=== PATIENT | female | born 1955 | race Caucasian/White ===

== ENCOUNTER → 2017-12-08 | Outpatient (CLI) | payer OTHER ==
--- NOTE | 2017-12-09 11:51 | MM ---
Reason for exam: screening (asymptomatic). History: Patient is postmenopausal. Physical Findings: A clinical breast exam by your physician is recommended on an annual basis and results should be correlated with mammographic findings. MG Screening Mammo w CAD Bilateral CC and MLO view(s) were taken. No prior studies available for comparison. The breast tissue is heterogeneously dense. This may lower the sensitivity of mammography. Benign appearing bilateral calcifications. No suspicious abnormality. Intramammary lymph nodes noted. ASSESSMENT: Benign, BI-RAD 2 RECOMMENDATION: Routine screening mammogram of both breasts in 1 year.
== END | disposition home or self-care (01) ==
LOC: RADMAMWWP 13:08
PROVIDERS: ATTEND Family Medicine
DX: Z12.31 Encounter for screening mammogram for malignant neoplasm of breast (principal)
CPT/HCPCS: 77067

== ENCOUNTER → 2018-03-17 | Day surgery (SDC) | payer MEDICARE, OTHER ==
[2018-03-15 11:45] VITALS: BMI 26.6
[~2018-03-17] MED LIST: LACTATED RINGERS 1,000 ML IV SCH; LIDOCAINE 1% 20 ML VIAL (10MG/ML) FOR IV START INTRADERMA ONE; PROPOFOL 10 MG/ML 20 ML VIAL IV ONE; diphenhydrAMINE 50 MG/ML 1 ML VIAL ONE
[2018-03-17 12:11] VITALS: RESP 16; TEMP 97
--- NOTE | 2018-03-17 13:35 | P.GSHP ---
History of Present Illness H&P Date: 03/17/18 Chief Complaint: Colon cancer screening Patient here today for colonoscopy. Last colonoscopy 10 years ago. No bowel related complaints. No family history of colon cancer although she does not know her family history well. Past Medical History Past Medical History: GERD/Reflux, Hyperlipidemia, Hypertension, Thyroid Disorder History of Any Multi-Drug Resistant Organisms: None Reported Past Surgical History: Cholecystectomy, Hernia Repair, Tonsillectomy Additional Past Surgical History / Comment(s): CYST REMOVED FROM ABD. AREA. CYST REMOVED FROM RT ANKLE. HERNIA X 3. COLONOSCOPY. EGD Past Anesthesia/Blood Transfusion Reactions: No Reported Reaction Smoking Status: Former smoker - Past Family History Mother Family Medical History: No Reported History Additional Family Medical History / Comment(s): MOTHER COMMITTED SUICIDE. FATHER HHX UNKNOWN Medications and Allergies Home Medications Medication Instructions Recorded Confirmed Type Enalapril [Vasotec] 20 mg PO BID 03/15/18 03/17/18 History Levothyroxine Sodium 125 mcg PO MOTUWETHFR 03/15/18 03/17/18 History Lovastatin [Mevacor] 40 mg PO HS 03/15/18 03/17/18 History Metoclopramide [Reglan] 10 mg PO TID-W/MEALS 03/15/18 03/17/18 History Omeprazole 20 mg PO DAILY 03/15/18 03/17/18 History Venlafaxine HCl [Effexor] 75 mg PO TID 03/15/18 03/17/18 History amLODIPine BESYLATE [Norvasc] 2.5 mg PO DAILY 03/15/18 03/17/18 History Allergies Allergy/AdvReac Type Severity Reaction Status Date / Time adhesive tape Allergy Rash/Hives Verified 03/17/18 12:00 Surgical - Exam Vital Signs Temp Pulse Resp BP Pulse Ox 97.0 F L 84 16 156/75 98 03/17/18 12:09 03/17/18 12:09 03/17/18 12:09 03/17/18 12:09 03/17/18 12:09 Physical exam: General: Well-developed, well-nourished HEENT: Normocephalic, sclerae nonicteric Abdomen: Nontender, nondistended Extremities: No edema Neuro: Alert and oriented Assessment and Plan (1) Colon cancer screening Narrative/Plan: Will proceed with colonoscopy at this time Current Visit: Yes Status: Acute Code(s): Z12.11 - ENCOUNTER FOR SCREENING FOR MALIGNANT NEOPLASM OF COLON SNOMED Code(s): 875550818
--- NOTE | 2018-03-17 13:54 | P.PCN ---
Date of Procedure: 03/17/18 Procedure(s) Performed: PREOPERATIVE DIAGNOSIS: Colon cancer screening POSTOPERATIVE DIAGNOSIS: Ascending colon polyp, 2 rectal polyps, diverticulosis PROCEDURE: Colonoscopy with snare polypectomy ANESTHESIA: MAC SURGEON: Davey Armendariz M.D. SPECIMENS: Polyps ENDOSCOPIC PROCEDURE: The patient was placed on the endoscopy table in the left decubitus position. The Olympus colonoscope was inserted into the anus and passed under direct visualization to the base of the cecum. The appendiceal orifice was visualized. From that point the scope was slowly withdrawn inspecting all surfaces carefully. There were no neoplastic inflammatory or polypoid lesions throughout the cecum. In the ascending colon a small polyp was identified and removed using the snare with cautery technique. The remaining of the ascending transverse descending and sigmoid colon appeared normal. In the rectum there were 2 small polyps removed in a similar fashion. There was mild left-sided diverticulosis present. Digital rectal examination was normal. The patient was taken to the recovery room in stable condition per anesthesia guidelines. RECOMMENDATIONS: Await biopsy results. Anticipate follow-up colonoscopy 5 years.
[2018-03-17 13:58] VITALS: BP 143/64; PULSE 79
== END ==
LOC: ORWHC2ENDO 11:23
PROVIDERS: ATTEND Surgery
DX: Z12.11 Encounter for screening for malignant neoplasm of colon (principal); D12.2 Benign neoplasm of ascending colon; D12.8 Benign neoplasm of rectum; K62.1 Rectal polyp; K57.30 Diverticulosis of large intestine without perforation or abscess without bleeding; K21.9 Gastro-esophageal reflux disease without esophagitis; E78.5 Hyperlipidemia, unspecified; I10 Essential (primary) hypertension; E07.9 Disorder of thyroid, unspecified; Z79.890 Hormone replacement therapy; Z79.899 Other long term (current) drug therapy; Z91.048 Other nonmedicinal substance allergy status; Z90.49 Acquired absence of other specified parts of digestive tract; Z87.891 Personal history of nicotine dependence
CPT/HCPCS: 88305; 45385; J1200; J2704

== ENCOUNTER → 2018-08-07 | Outpatient (CLI) | payer MEDICARE, OTHER ==
--- NOTE | 2018-08-07 11:28 | XR ---
EXAMINATION TYPE: XR pelvis AP view DATE OF EXAM: 08/07/2018 CLINICAL HISTORY: Pelvic and groin pain. TECHNIQUE: A single AP view of the pelvis is obtained. COMPARISON: None. FINDINGS: There is no acute fracture/dislocation evident in the pelvis. The hip and sacroiliac join ts appear symmetric and unremarkable. Vague linear densities over the pelvis extending right of midli ne of uncertain etiology. Pubic symphysis shows sclerosis and deformity perhaps product of old trauma . IMPRESSION: As above.
--- NOTE | 2018-08-07 11:30 | XR ---
EXAMINATION TYPE: XR lumbar spine 2 or 3V DATE OF EXAM: 08/07/2018 CLINICAL HISTORY: Low back pain. TECHNIQUE: Frontal and lateral images of the lumbar spine are obtained. COMPARISON: None FINDINGS: There are 5 lumbar type vertebral bodies identified. The lumbar spine shows levoconvex sc oliosis centered L3 level without evidence of acute fracture or dislocation. Vertebral body heights a re felt within normal limits. Moderate to severe narrowing with spurring is most prominent left L1-L2 level. There is mild to moderate disc space narrowing L2-L3 level and L4-L5 levels. There is moderat e disc space narrowing with mild to moderate anterior spurring L5-S1 level. The overlying soft tissue appears unremarkable. IMPRESSION: As above.
--- NOTE | 2018-08-07 11:35 | XR ---
EXAMINATION TYPE: XR cervical spine limited DATE OF EXAM: 08/07/2018 TECHNIQUE: Frontal, lateral, and open mouth view of the cervical spine are obtained. HISTORY: M99.03 M54.41 M99.01 limited movement and pain. COMPARISON: None FINDINGS: The cervical spine is visualized in its entirety from C1 thru the top of T1 level, it is s traightened in alignment without evidence of acute fracture or dislocation. The pre-vertebral soft t issue appears within normal limits. The C1-C2 articulation is within normal limits on the open mouth view. Vertebral body heights are maintained. There is moderate 2 borderline advanced multilevel spur ring and disc space narrowing from C3 to C4 through C7-T1 levels. Frontal view shows levoconvex scoli otic curvature centered upper thoracic T3 level. Overlying soft tissue is unremarkable. IMPRESSION: As above.
== END | disposition home or self-care (01) ==
LOC: RADXRMAIN 10:34
PROVIDERS: ATTEND Chiropractor
DX: M41.86 Other forms of scoliosis, lumbar region (principal); M48.061 Spinal stenosis, lumbar region without neurogenic claudication; M48.03 Spinal stenosis, cervicothoracic region; M54.41 Lumbago with sciatica, right side; M99.01 Segmental and somatic dysfunction of cervical region
CPT/HCPCS: 72040; 72100; 72170

== ENCOUNTER → 2018-11-17 | Outpatient (CLI) | payer MEDICARE, OTHER ==
--- NOTE | 2018-11-17 13:39 | XR ---
EXAMINATION TYPE: XR chest 2V DATE OF EXAM: 11/17/2018 COMPARISON: NONE HISTORY: Cough for one month TECHNIQUE: Frontal and lateral views of the chest are obtained. FINDINGS: Increased interstitial prominence is present throughout. There is no focal air space opacit y, pleural effusion, or pneumothorax seen. The cardiac silhouette size is within normal limits. Th e osseous structures are intact. Minimal S-shaped scoliosis is seen of the thoracolumbar junction. Ch olecystectomy clips are noted. IMPRESSION: Diffuse increased interstitial prominence that can be seen in reactive airway disease, i nterstitial pneumonitis, or infectious airway disease such as bronchitis.
== END | disposition home or self-care (01) ==
LOC: RADXRMAIN 12:33
PROVIDERS: ATTEND Family Medicine
DX: R91.8 Other nonspecific abnormal finding of lung field (principal); R05 Cough
CPT/HCPCS: 71046

== ENCOUNTER → 2019-04-17 | Outpatient (CLI) | payer MEDICARE, OTHER ==
--- NOTE | 2019-04-17 15:44 | US ---
EXAMINATION TYPE: US kidneys/renal and bladder DATE OF EXAM: 04/17/2019 COMPARISON: NONE CLINICAL HISTORY: N18.3 Chronic kidney disease. CKD stage 3 EXAM MEASUREMENTS: Right Kidney: 9.7 x 5.7 x 4.8 cm Left Kidney: 9.5 x 5.0 x 4.7 cm Right Kidney: no hydronephrosis or masses seen Left Kidney: no hydronephrosis or masses seen Bladder: wnl Bilateral Jets seen: yes There is no evidence for hydronephrosis at this point in time. No nephrolithiasis is seen. No loco s are identified. The urinary bladder is anechoic. Bilateral ureteral jets are seen. IMPRESSION: No hydronephrosis or nephrolithiasis. No current sonographic sequela of medical renal dis ease.
== END | disposition home or self-care (01) ==
LOC: RADUSWWP 14:52
PROVIDERS: ATTEND Family Medicine
DX: N18.3 Chronic kidney disease, stage 3 (moderate) (principal)
CPT/HCPCS: 76770

== ENCOUNTER 2019-10-20 16:52 | Emergency (ER) | payer MEDICARE, OTHER ==
[2019-10-20 17:01] VITALS: RESP 18; TEMP 98.4
[2019-10-20] MEDS ORDERED: ONDANSETRON 4 MG/2 ML VIAL IVP STA (17:18)
[2019-10-20] MEDS ORDERED: SODIUM CHLORIDE 0.9% 1,000 ML IV STA (17:18)
[2019-10-20] MEDS ORDERED: KETOROLAC 30 MG/ML 1 ML VIAL IVP STA (17:18)
--- NOTE | 2019-10-20 17:27 | ED ---
General Adult HPI - General Chief complaint: Abdominal Pain Stated complaint: Abd pain Time Seen by Provider: 10/20/19 17:05 Source: patient, RN notes reviewed Mode of arrival: ambulatory Limitations: no limitations - History of Present Illness Initial comments: 64-year-old female with a past medical history of hyperlipidemia, hypertension, GERD presents to the emergency department for a chief complaint of abdominal pain. Patient states that 5 days ago she noticed her abdomen was distended and she had associated nausea. Patient states that she was also having some lower abdominal pain starting at that time. Patient states the next day she tried to eat and vomited. States that she saw her doctor through telemedicine on and they recommended soft foods and to follow-up next week. Patient states that this morning she had a solid bowel movement and thought things were improving. However she ate 2 crackers and then had diarrhea. States the abdominal pain is worse. States it is in her lower abdomen, both sides. Patient states she has had chills on and off but has not checked a temperature so no recorded fevers at home. Patient did have a cholecystectomy several years ago.Patient has no other complaints at this time including shortness of breath, chest pain, headache, or visual changes. - Related Data Home Medications Medication Instructions Recorded Confirmed Enalapril [Vasotec] 20 mg PO BID 03/15/18 03/17/18 Levothyroxine Sodium 125 mcg PO MOTUWETHFR 03/15/18 03/17/18 Lovastatin [Mevacor] 40 mg PO HS 03/15/18 03/17/18 Metoclopramide [Reglan] 10 mg PO TID-W/MEALS 03/15/18 03/17/18 Omeprazole 20 mg PO DAILY 03/15/18 03/17/18 Venlafaxine HCl [Effexor] 75 mg PO TID 03/15/18 03/17/18 amLODIPine BESYLATE [Norvasc] 2.5 mg PO DAILY 03/15/18 03/17/18 Allergies Allergy/AdvReac Type Severity Reaction Status Date / Time adhesive tape Allergy Rash/Hives Verified 10/20/19 16:55 Review of Systems ROS Statement: Those systems with pertinent positive or pertinent negative responses have been documented in the HPI. ROS Other: All systems not noted in ROS Statement are negative. Past Medical History Past Medical History: GERD/Reflux, Hyperlipidemia, Hypertension, Thyroid Disorder History of Any Multi-Drug Resistant Organisms: None Reported Past Surgical History: Cholecystectomy, Hernia Repair, Tonsillectomy Additional Past Surgical History / Comment(s): CYST REMOVED FROM ABD. AREA. CYST REMOVED FROM RT ANKLE. HERNIA X 3. COLONOSCOPY. EGD Past Anesthesia/Blood Transfusion Reactions: No Reported Reaction Past Psychological History: Anxiety, PTSD Smoking Status: Former smoker Past Alcohol Use History: None Reported Past Drug Use History: Marijuana - Past Family History Mother Family Medical History: No Reported History Additional Family Medical History / Comment(s): MOTHER COMMITTED SUICIDE. FATHER HHX UNKNOWN General Exam Limitations: no limitations General appearance: alert, in no apparent distress Head exam: Present: atraumatic, normocephalic, normal inspection Eye exam: Present: normal appearance, PERRL, EOMI. Absent: scleral icterus, conjunctival injection, periorbital swelling ENT exam: Present: normal exam, mucous membranes moist Neck exam: Present: normal inspection, full ROM. Absent: tenderness, meningismus, lymphadenopathy Respiratory exam: Present: normal lung sounds bilaterally. Absent: respiratory distress, wheezes, rales, rhonchi, stridor Cardiovascular Exam: Present: regular rate, normal rhythm, normal heart sounds. Absent: systolic murmur, diastolic murmur, rubs, gallop, clicks GI/Abdominal exam: Present: soft, distended, tenderness (Tenderness generalized in the lower abdomen. There is no upper abdominal tenderness.), normal bowel sounds. Absent: guarding, rebound, rigid Neurological exam: Present: alert Course Vital Signs 10/20/19 16:55 Temperature 98.4 F Pulse Rate 100 Respiratory 18 Rate Blood Pressure 160/96 O2 Sat by Pulse 98 Oximetry Medical Decision Making - Medical Decision Making Vitals are stable. Patient has generalized tenderness to the lower abdomen. Patient is well-appearing, ambulatory around the exam room. She is nontoxic. CBC is unremarkable. CMP shows some possible dehydration she was given fluids. Otherwise unremarkable. CT abdomen and pelvis shows a soft tissue density in the ascending colon measuring 5.4 cm which could represent form stool or mass colonoscopy recommended. Patient did have a colonoscopy within the last year that was normal aside from 1 polyp. Pulmonary nodule, uterine leiomyoma and ovoid structure in the right adnexa also addressed with patient and she will follow-up with her primary care for this on Tuesday. We will try magnesium citrate for possible stool ball. Although patient had a colonoscopy in the past year I discussed that she should follow up with GI for this given concern for mass. Patient is in agreement. She will also discuss this with her primary care provider in go through CT results with them. Patient is feeling better after Toradol. Patient very much wants to go home as she has 4 dogs to manage but does agree to return to the ER if things worsen. I did discuss symptoms that would require her to return in detail with patient.I discussed this case with attending Dr. Crandall who agrees with this assessment and treatment plan. - Lab Data Result diagrams: 10/20/19 17:35 10/20/19 17:35 Lab Results 10/20/19 10/20/19 10/20/19 Range/Units 17:35 17:35 17:35 WBC 9.5 (3.8-10.6) k/uL RBC 5.08 (3.80-5.40) m/uL Hgb 15.7 (11.4-16.0) gm/dL Hct 48.4 H (34.0-46.0) % MCV 95.2 (80.0-100.0) fL MCH 30.9 (25.0-35.0) pg MCHC 32.4 (31.0-37.0) g/dL RDW 12.5 (11.5-15.5) % Plt Count 225 (150-450) k/uL Neutrophils % 70 % Lymphocytes % 19 % Monocytes % 7 % Eosinophils % 2 % Basophils % 1 % Neutrophils # 6.6 (1.3-7.7) k/uL Lymphocytes # 1.8 (1.0-4.8) k/uL Monocytes # 0.6 (0-1.0) k/uL Eosinophils # 0.2 (0-0.7) k/uL Basophils # 0.1 (0-0.2) k/uL Sodium 139 (137-145) mmol/L Potassium 3.5 (3.5-5.1) mmol/L Chloride 104 (98-107) mmol/L Carbon Dioxide 20 L (22-30) mmol/L Anion Gap 15 mmol/L BUN 19 H (7-17) mg/dL Creatinine 1.32 H (0.52-1.04) mg/dL Est GFR (CKD-EPI)AfAm 49 (>60 ml/min/1.73 sqM) Est GFR (CKD-EPI)NonAf 42 (>60 ml/min/1.73 sqM) Glucose 104 H (74-99) mg/dL Plasma Lactic Acid Anupam 1.4 (0.7-2.0) mmol/L Calcium 10.5 H (8.4-10.2) mg/dL Total Bilirubin 0.4 (0.2-1.3) mg/dL AST 45 H (14-36) U/L ALT 28 (4-34) U/L Alkaline Phosphatase 87 (38-126) U/L Total Protein 8.3 H (6.3-8.2) g/dL Albumin 5.2 H (3.5-5.0) g/dL Amylase 83 (30-110) U/L Lipase 146 (23-300) U/L Urine Color Urine Appearance (Clear) Urine pH (5.0-8.0) Ur Specific Metz (1.001-1.035) Urine Protein (Negative) Urine Glucose (UA) (Negative) Urine Ketones (Negative) Urine Blood (Negative) Urine Nitrite (Negative) Urine Bilirubin (Negative) Urine Urobilinogen (<2.0) mg/dL Ur Leukocyte Esterase (Negative) Urine RBC (0-5) /hpf Urine WBC (0-5) /hpf Ur Squamous Epith Cells (0-4) /hpf Urine Bacteria (None) /hpf Hyaline Casts (0-2) /lpf Urine Mucus (None) /hpf 10/20/19 Range/Units 18:35 WBC (3.8-10.6) k/uL RBC (3.80-5.40) m/uL Hgb (11.4-16.0) gm/dL Hct (34.0-46.0) % MCV (80.0-100.0) fL MCH (25.0-35.0) pg MCHC (31.0-37.0) g/dL RDW (11.5-15.5) % Plt Count (150-450) k/uL Neutrophils % % Lymphocytes % % Monocytes % % Eosinophils % % Basophils % % Neutrophils # (1.3-7.7) k/uL Lymphocytes # (1.0-4.8) k/uL Monocytes # (0-1.0) k/uL Eosinophils # (0-0.7) k/uL Basophils # (0-0.2) k/uL Sodium (137-145) mmol/L Potassium (3.5-5.1) mmol/L Chloride (98-107) mmol/L Carbon Dioxide (22-30) mmol/L Anion Gap mmol/L BUN (7-17) mg/dL Creatinine (0.52-1.04) mg/dL Est GFR (CKD-EPI)AfAm (>60 ml/min/1.73 sqM) Est GFR (CKD-EPI)NonAf (>60 ml/min/1.73 sqM) Glucose (74-99) mg/dL Plasma Lactic Acid Anupam (0.7-2.0) mmol/L Calcium (8.4-10.2) mg/dL Total Bilirubin (0.2-1.3) mg/dL AST (14-36) U/L ALT (4-34) U/L Alkaline Phosphatase (38-126) U/L Total Protein (6.3-8.2) g/dL Albumin (3.5-5.0) g/dL Amylase (30-110) U/L Lipase (23-300) U/L Urine Color Light Yellow Urine Appearance Cloudy H (Clear) Urine pH 6.5 (5.0-8.0) Ur Specific Metz 1.013 (1.001-1.035) Urine Protein Negative (Negative) Urine Glucose (UA) Negative (Negative) Urine Ketones 1+ H (Negative) Urine Blood Negative (Negative) Urine Nitrite Negative (Negative) Urine Bilirubin Negative (Negative) Urine Urobilinogen <2.0 (<2.0) mg/dL Ur Leukocyte Esterase Small H (Negative) Urine RBC 1 (0-5) /hpf Urine WBC 6 H (0-5) /hpf Ur Squamous Epith Cells 6 H (0-4) /hpf Urine Bacteria Many H (None) /hpf Hyaline Casts 12 H (0-2) /lpf Urine Mucus Rare H (None) /hpf Disposition Clinical Impression: Abdominal pain, Pulmonary nodule Disposition: HOME SELF-CARE Condition: Good Instructions (If sedation given, give patient instructions): Abdominal Pain (ED) Additional Instructions: Please drink half a bottle of magnesium citrate and wait 12 hours. If you do not produce a bowel movement drink the other half. Follow-up with your primary care doctor for findings on computed tomography scan. Follow-up with GI for concern for mass of the right side of the colon. If you're having worsening symptoms please return to the emergency department. These could include worsening pain, vomiting, fevers, or not passing gas. Is patient prescribed a controlled substance at d/c from ED?: No Referrals: Abelardo Gupta [Primary Care Provider] - 1-2 days Tamara Hawthorne MD [STAFF PHYSICIAN] - 1-2 days Time of Disposition: 19:33
[2019-10-20 17:52] LABS: Basophils # (A) 0.1 k/uL (0-0.2); Basophils % (A) 1 %; Eosinophils # (A) 0.2 k/uL (0-0.7); Eosinophils % (A) 2 %; HCT 48.4 % (34.0-46.0); HGB 15.7 gm/dL (11.4-16.0); Lymphocytes # (A) 1.8 k/uL (1.0-4.8); Lymphocytes % (A) 19 %; MCH 30.9 pg (25.0-35.0); MCHC 32.4 g/dL (31.0-37.0); MCV 95.2 fL (80.0-100.0); Mean Platelet Volume 8.3; Monocytes # (A) 0.6 k/uL (0-1.0); Monocytes % (A) 7 %; Neutrophils # (A) 6.6 k/uL (1.3-7.7); Neutrophils % (A) 70 %; Platelet Count 225 k/uL (150-450); RBC 5.08 m/uL (3.80-5.40); RDW 12.5 % (11.5-15.5); WBC 9.5 k/uL (3.8-10.6)
[2019-10-20 18:03] LABS: Albumin 5.2 g/dL (3.5-5.0); Calcium 10.5 mg/dL (8.4-10.2); Potassium 3.5 mmol/L (3.5-5.1); Total Bilirubin 0.4 mg/dL (0.2-1.3); Total Protein 8.3 g/dL (6.3-8.2)
--- NOTE | 2019-10-20 18:43 | CT ---
EXAMINATION TYPE: CT abdomen pelvis w con DATE OF EXAM: 10/20/2019 HISTORY: ABDOMINAL PAIN AND DIARRHEA CT DLP: 962.8mGycm Automated Exposure Control for Dose Reduction was Utilized. CONTRAST: CT scan of the abdomen and pelvis is performed with IV Contrast, patient injected with 80 mL of Isovu e 300. COMPARISON: None. FINDINGS: LUNG BASES: There is a 9 mm right basilar pulmonary nodule peripherally with a punctate internal calc ification. Given the internal calcifications this most commonly represents a granuloma. LIVER/GB: There are scattered hypoattenuated hepatic lesions the largest measuring 1.0 cm having aver age Hounsfield unit of fluid compatible with a cyst. The other lesions are too small to accurately ch aracterize. Hepatic parenchyma is diffusely hypoattenuated in comparison to that of the spleen, most commonly seen in hepatic steatosis. This finding limits evaluation for hepatic masses. No intrahepati c biliary ductal dilatation. Gallbladder surgically absent. PANCREAS: No significant abnormality is seen. SPLEEN: No significant abnormality is seen. ADRENALS: No significant abnormality is seen. KIDNEYS: Kidneys enhance and excrete symmetrically other than punctate to small to accurately charact erize bilateral renal lesions. No hydronephrosis of either kidney. BOWEL: Duodenal diverticulum is incidentally seen. Few sigmoid and descending colonic diverticula are present without pericolonic fat stranding. Lack of oral contrast limits evaluation of the bowel. The re is soft tissue density seen within the cecum neck could represent formed stool or mass. Colonoscop y is recommended. This measures 5.4 cm on image 38. UTERUS/ADNEXA: In the right adnexa there is a hyperdense structure, likely a surgical clip with a sma ll amount of adjacent fluid. No significant surrounding inflammatory fat stranding. Uterus is heterog enous with possible 2.4 cm uterine fundal leiomyoma. This could be further evaluated with pelvic ultr asound. LYMPH NODES: No greater than 1cm abdominal or pelvic lymph nodes are appreciated. OSSEOUS STRUCTURES: Grade 1 anterolisthesis is seen of L4 on L5. Moderate degenerative disc disease o f the spine. Mild retrolisthesis of L2 on L3 and L1 on L2, likely on a degenerative basis levoscolios is of the lumbar spine. IMPRESSION: 1. Soft tissue density in the ascending colon measuring 5.4 cm. This could represent formed stool or mass. Colonoscopy is recommended. 2. 9 mm partially calcified right lower lobe pulmonary nodule. Given the internal calcification is li neena represents a benign granuloma. Consideration could be given to PET CT for confirmation or short- term follow-up CT thorax in 3-6 months to ensure stability. 3. Possible uterine leiomyoma. This could be further evaluated with pelvic ultrasound. 4. Fluid attenuated ovoid structure in the right adnexa adjacent to a surgical clip, possibly free fl uid, physiologic basis.
[2019-10-20 19:06] LABS: Appearance,Urine Cloudy (Clear); Bacteria,Urine Many /hpf; Bilirubin,Urine Negative (Negative); Blood,Urine Negative (Negative); Color,Urine Light Yellow; Glucose,Urine (UA) Negative (Negative); Hyaline Casts,Urine 12 /lpf (0-2); Ketones,Urine 1+ (Negative); Leukocyte Esterase,Urine Small (Negative); Mucus,Urine Rare /hpf; Nitrite,Urine Negative (Negative); PH, Urine 6.5 (5.0-8.0); Protein,Urine Negative (Negative); RBC,Urine 1 /hpf (0-5); Specific Gravity,Urine 1.013 (1.001-1.035); Squamous Epithelial Cell,Urine 6 /hpf (0-4); Urobilinogen,Urine <2.0 mg/dL (<2.0); WBC,Urine 6 /hpf (0-5)
[2019-10-20] MEDS ORDERED: MAGNESIUM CITRATE 296 ML BOTTLE PO STA (19:32)
[2019-10-20 19:44] VITALS: BP 128/88; PULSE 90
== END 2019-10-20 20:05 | disposition home or self-care (01) ==
LOC: EC 16:52
DX: D25.9 Leiomyoma of uterus, unspecified (principal); R91.1 Solitary pulmonary nodule; K21.9 Gastro-esophageal reflux disease without esophagitis; E78.5 Hyperlipidemia, unspecified; I10 Essential (primary) hypertension; E07.9 Disorder of thyroid, unspecified; F41.9 Anxiety disorder, unspecified; F43.10 Post-traumatic stress disorder, unspecified; Z90.49 Acquired absence of other specified parts of digestive tract; Z98.890 Other specified postprocedural states; Z87.891 Personal history of nicotine dependence; Z79.890 Hormone replacement therapy; Z79.899 Other long term (current) drug therapy; Z91.048 Other nonmedicinal substance allergy status
CPT/HCPCS: 36415; 80053; 82150; 83605; 83690; 85025; 81001; 74177; 99284; 96374; 96375; 96361; J2405; J1885; Q9967

== ENCOUNTER → 2019-12-24 | Outpatient (CLI) | payer MEDICARE, OTHER ==
[2019-12-24 08:59] LABS: African American GFR (CKD) >90 (>60 ml/min/1.73 sqM); Anion Gap 7 mmol/L; Blood Urea Nitrogen 20 mg/dL (7-17); Calcium 9.7 mg/dL (8.4-10.2); Carbon Dioxide 25 mmol/L (22-30); Chloride 107 mmol/L (98-107); Glucose 97 mg/dL (74-99); Non-African American GFR(CKD) 83 (>60 ml/min/1.73 sqM); Potassium 4.7 mmol/L (3.5-5.1); Sodium 139 mmol/L (137-145)
--- NOTE | 2019-12-24 09:37 | CT ---
EXAMINATION TYPE: CT chest w con DATE OF EXAM: 12/24/2019 COMPARISON: 10/20/2019 HISTORY: follow up lung nodule CT DLP: 305.7 mGycm Automated exposure control for dose reduction was used. CONTRAST: CT scan of the chest is performed with IV Contrast, patient injected with 100 mL of Isovue 300. FINDINGS: LUNGS: There is a stable 9 mm subpleural nodule within the right lower lobe. No pneumothorax or pleur al effusion. No focal pneumonia. No evidence of vascular congestion. No additional pulmonary nodules. MEDIASTINUM: There are no greater than 1 cm hilar or mediastinal lymph nodes. No pericardial effusi on is seen. OTHER: Multiple hypodensities within the liver are stable from the prior exam most likely in the bas is of simple cyst. Hypertrophic and degenerative changes of the vertebral column. Postcholecystectomy changes. IMPRESSION: 1. Stable 9 mm nodule with punctate calcification therefore likely benign. However given its size it would recommend 3- 6 month follow-up CT scan to confirm stability or PET scan could be obtained.
== END | disposition home or self-care (01) ==
LOC: RADCTMAIN 08:16
PROVIDERS: ATTEND Family Medicine
DX: R91.1 Solitary pulmonary nodule (principal); I12.9 Hypertensive chronic kidney disease with stage 1 through stage 4 chronic kidney disease, or unspecified chronic kidney disease; N18.3 Chronic kidney disease, stage 3 (moderate)
CPT/HCPCS: 80048; 71260; 36415; Q9967

== ENCOUNTER → 2020-03-07 | Outpatient (CLI) | payer MEDICARE, OTHER ==
--- NOTE | 2020-03-11 13:53 | MM ---
Reason for exam: screening (asymptomatic). Last mammogram was performed 2 years and 3 months ago. History: Patient is postmenopausal and has history of other cancer at age 65. Physical Findings: A clinical breast exam by your physician is recommended on an annual basis and results should be correlated with mammographic findings. MG 3D Screening Mammo W/Cad Bilateral CC and MLO view(s) were taken. Prior study comparison: December 08, 2017, bilateral MG screening mammo w CAD. The breast tissue is heterogeneously dense. This may lower the sensitivity of mammography. Stable benign calcifications. There is chronic nodularity bilaterally. No significant changes when compared with prior studies. ASSESSMENT: Benign, BI-RAD 2 RECOMMENDATION: Routine screening mammogram of both breasts in 1 year.
== END | disposition home or self-care (01) ==
LOC: RADMAMWWP 07:56
PROVIDERS: ATTEND Family Medicine
DX: Z12.31 Encounter for screening mammogram for malignant neoplasm of breast (principal)
CPT/HCPCS: 77063; 77067

== ENCOUNTER → 2020-08-14 | Outpatient (CLI) | payer MEDICARE, OTHER ==
--- NOTE | 2020-08-15 08:09 | BD ---
EXAMINATION TYPE: Axial Bone Density DATE OF EXAM: 08/14/2020 COMPARISON: NONE CLINICAL HISTORY: Height: 5 FT 4 1/2 IN Weight: 171 FRAX RISK QUESTIONS: Alcohol (3 or more units per day): NO Family History (Parent hip fracture): NO Glucocorticoids (More than 3mos): NO (Ex: prednisone, prednisolone, methylprednisolone, dexamethasone, and hydrocortisone). History of Fracture in Adulthood: YES Secondary Osteoporosis: 1. Type 1 Diabetes: NO 2. Hyperthyroidism: REMOVED 3. Menopause before 45:NO 4. Malnutrition: NO 5. Chronic liver disease: NO Rheumatoid Arthritis: NO Current Tobacco Use: NO RISK FACTORS HISTORY OF: History of Wrist Fracture: RT WRIST FX When: LONG AGO Surgery to Spine/Hip(right/left)/Wrist (right/left): NO Family History of Osteoporosis: NO Active: NO Diet low in dairy products/other sources of calcium: NO Postmenopausal woman: AGE 52 Take estrogen and/or progesterone medications: TOOK HRT FOR 1-2 YEARS AROUND 10 YEARS AGO Lost more than 2 inches in height since high school: YES MEDICATIONS: Thyroid Medications: YES Which medication: LEVOTHYROXINE How Long: SINCE AGE 19 Additional Medications: LEVOTHYROXINE, LOVASTATIN, VENLAFAXINE, AMLODIPINE, ENALAPRIL Additional History: EXAM MEASUREMENTS: Bone mineral densitometry was performed using the [employer] System. Bone mineral density as measured about the Lumbar spine is: ----- L1-L4(G/cm2): 1.367 T Score Values are as follows: ----- L2: 1.8 ----- L3: 1.9 ----- L4: 0.7 ----- L1-L4: 1.6 BASELINE Bone mineral density about the R hip (g/cm2): 0.888 Bone mineral density about the L hip (g/cm2): 0.838 T Score values are as follows: -----R Neck: -1.1 -----L Neck: -1.4 -----R Total: -1.1 -----L Total: -1.2 BASELINE IMPRESSION: Osteopenia (T Score between -2.5 and -1). There is slightly increased risk of fracture and the patient may be considered for treatment. Re-Screen 2-5 years. NOTE: T-SCORE=SD OF THE YOUNG ADULT MEAN.
== END ==
LOC: RADBDWWP 09:04
PROVIDERS: ATTEND Family Medicine
DX: M85.89 Other specified disorders of bone density and structure, multiple sites (principal)
CPT/HCPCS: 77080

== ENCOUNTER → 2020-12-09 | Outpatient (CLI) | payer MEDICARE, OTHER ==
--- NOTE | 2020-12-09 15:28 | CT ---
EXAMINATION TYPE: CT chest wo con DATE OF EXAM: 12/09/2020 COMPARISON: CT chest 12/24/2019 HISTORY: Follow up lung nodule R91.[address] DLP: 540 mGycm. Automated Exposure Control for Dose Reduction was Utilized. TECHNIQUE: CT scan of the thorax is performed without IV contrast. FINDINGS: Lack of contrast could compromise sensitivity LUNGS: The lungs are grossly clear, there is no concerning parenchymal mass or nodule identified. Th e centrally calcified smoothly marginated nodule in the right lower lobe is stable. There is no pleur al effusion or pneumothorax seen. The tracheobronchial tree is patent. MEDIASTINUM: Lack of IV contrast is noted to limit evaluation for mediastinal and especially hilar ad enopathy. There are no definitive greater than 1 cm hilar or mediastinal lymph nodes. No cardiomega ly or pericardial effusion is seen. Calcified nodule is stable adjacent to the esophagus and posterio r to the left atrium OTHER: No additional significant abnormality is seen, bones are stable. Hypodensities within the naomi er are unchanged. Patient is post cholecystectomy. IMPRESSION: Benign lung nodule. Stable exam.
== END | disposition home or self-care (01) ==
LOC: RADCTMAIN 13:21
PROVIDERS: ATTEND Family Medicine
DX: R91.1 Solitary pulmonary nodule (principal)
CPT/HCPCS: 71250

== ENCOUNTER → 2021-05-19 | Outpatient (CLI) | payer MEDICARE, OTHER ==
--- NOTE | 2021-05-20 14:03 | MM ---
Reason for exam: screening (asymptomatic). Last mammogram was performed 1 year and 2 months ago. History: Patient is postmenopausal and has history of other cancer at age 65. Physical Findings: A clinical breast exam by your physician is recommended on an annual basis and results should be correlated with mammographic findings. MG 3D Screening Mammo W/Cad Bilateral CC and MLO view(s) were taken. Prior study comparison: March 07, 2020, bilateral MG 3d screening mammo w/cad. December 08, 2017, bilateral MG screening mammo w CAD. The breast tissue is heterogeneously dense. This may lower the sensitivity of mammography. Benign appearing bilateral calcifications. There is chronic nodularity in the right breast, stable. No significant changes when compared with prior studies. ASSESSMENT: Benign, BI-RAD 2 RECOMMENDATION: Routine screening mammogram of both breasts in 1 year.
== END | disposition home or self-care (01) ==
LOC: RADMAMWWP 07:59
PROVIDERS: ATTEND Family Medicine
DX: Z12.31 Encounter for screening mammogram for malignant neoplasm of breast (principal); Z78.0 Asymptomatic menopausal state
CPT/HCPCS: 77063; 77067

== ENCOUNTER → 2022-04-15 | Outpatient (CLI) | payer MEDICARE, OTHER ==
--- NOTE | 2022-04-15 11:32 | P.SLEEP ---
History of Present Illness DATE: 04/15/2022 CONSULTATION/NEW PATIENT EVALUATION HISTORY OF PRESENT ILLNESS/SLEEP-WAKE EVALUATION: 67-year-old lady had been evaluated in the sleep center for possible obstructive sleep apnea hypopnea syndrome. SLEEP SCHEDULE: Usually sleep schedule from 10 PM to 7 AM 7 days a week. FALLING ASLEEP: Patient had problems with the falling asleep which was corrected with the trazodone 50 mg at bedtime. Patient has TV set and bedroom. DURING SLEEP: Patient snores, usually sleeps on the side position, wakes up 3 times with nocturia, dry mouth, episodes of panic attack, sweating. Positive history of sleep talking. No history of hypnogogical hallucinations, sleep paralysis, or cataplexy. DURING THE DAY/WAKE STATE: In the morning patient wake up tired, has difficulties to pay attention, has problems with memory, concentration, irritability and anxiety. [place] sleepiness scale is 5. Patient may take 1 nap during the day. PAST MEDICAL HISTORY: Hypertension, ADHD, hypothyroidism secondary to radioactive iodine treatment at age of 18, hyperlipidemia. PAST SURGICAL HISTORY: Tonsillectomy, cholecystectomy, ovarian cyst removed, 30 tumor removed. MEDICATIONS: Levothyroxine 125 g 5 times per week, lovastatin 40 mg once a week, clonidine/triamterene, trazodone 50 mg at bedtime, atomoxetine 100 mg once a day, midodrin 5 mg 3 times a day. SOCIAL HISTORY: Positive history of smoking for 20 pack years, quit about 40 years ago, alcohol consumption occasional. FAMILY HISTORY: Bipolar disorder. REVIEW OF SYSTEMS: Snoring, multiple awakenings from sleep, tiredness and sleepiness during the day. No fevers. No double vision. No recent chest pain. No shortness of breath. No abdominal pain. No bleeding episodes. No blood in urine. No seizure episodes. PHYSICAL EXAMINATION: GENERAL: A pleasant patient without any distress. VITAL SIGNS: BP 152/94 , HR 62 , RR 16 , weight 158.2 pounds, height 5 foot 5-1/4 inches, body mass index 26.1 . HEENT: PERRLA, EOMI. Evaluation of oropharynx showed tongue protrudes midline, low position of soft palate Mallampati 34, retrognathia 23 millimeters. NECK: Supple. No JVD. Thyroid is not palpable. 14-3/4 inches in circumference. LUNGS: Clear to percussion and to auscultation. Good air exchange. No wheezing or rhonchi. HEART: S1, S2 regular. No murmurs, gallops or rubs. ABDOMEN: Soft and nontender. Bowel sounds are present. No organomegaly appreciated. EXTREMITIES: No clubbing or cyanosis. FLAME GOUGER: Awake, alert, and oriented x3. Cranial nerves 2 to 7 intact. There is no fasciculation or atrophy noted. No focal deficits observed. ASSESSMENT: 1. Snoring, multiple awakenings from sleep, small oropharyngeal air space, retrognathia. Obstructive sleep apnea hypopnea syndrome. 2. Hypertension. 3. Hypothyroidism secondary to radioactive iodine treatment about 50 years ago. 4. History of ADHD. 5 hyperlipidemia. 6 . Status post tonsillectomy. 7. Status post cholecystectomy. 8. Status post ovarian cyst removed. 9 . Status post fatty tumor removed. . PLAN: 1. Polysomnography for evaluation of patient's breathing during sleep. 2. CPAP/BiPAP titration if sleep study confirms obstructive sleep apnea- hypopnea syndrome. 3. Preferable position during sleep on the side. 4. No driving if patient feels any sleepiness. Patient is aware of civil and criminal liability for unsafe driving. 5. Sleep hygiene with regular sleep time for at least 7.5-8 hours. 6. Watching weight. Thank you very much for referring this patient for consultation. Sincerely, Edward Gunn MD, PhD, FAASM. Diplomat of [place] [employer], Sleep Medicine Board by [place] [employer] [place] [employer] [place] [facility] of [facility] [place] Past Medical History Past Medical History: GERD/Reflux, Hyperlipidemia, Hypertension, Thyroid Disorder History of Any Multi-Drug Resistant Organisms: None Reported Past Surgical History: Cholecystectomy, Hernia Repair, Tonsillectomy Additional Past Surgical History / Comment(s): CYST REMOVED FROM ABD. AREA. CYST REMOVED FROM RT ANKLE. HERNIA X 3. COLONOSCOPY. EGD Past Anesthesia/Blood Transfusion Reactions: No Reported Reaction Past Psychological History: Anxiety, PTSD Past Alcohol Use History: None Reported Past Drug Use History: Marijuana - Past Family History Mother Family Medical History: No Reported History Additional Family Medical History / Comment(s): MOTHER COMMITTED SUICIDE. FATHER HHX UNKNOWN Medications and Allergies Home Medications Medication Instructions Recorded Confirmed Type Enalapril [Vasotec] 20 mg PO BID 10/17/18 10/19/18 History Levothyroxine Sodium 125 mcg PO MOTUWETHFR 03/15/18 03/17/18 History Lovastatin [Mevacor] 40 mg PO HS 03/15/18 03/17/18 History Metoclopramide [Reglan] 10 mg PO TID-W/MEALS 03/15/18 03/17/18 History Omeprazole 20 mg PO DAILY 03/15/18 03/17/18 History Venlafaxine HCl [Effexor] 75 mg PO TID 03/15/18 03/17/18 History amLODIPine BESYLATE [Norvasc] 2.5 mg PO DAILY 03/15/18 03/17/18 History Allergies Allergy/AdvReac Type Severity Reaction Status Date / Time adhesive tape Allergy Rash/Hives Verified 10/20/19 16:55 Sleep Note - Sleep Note Sleep Note: Temperature: Pulse Rate: Respiratory Rate: Blood Pressure: SpO2: Height: Weight: BMI: Neck Circumference:
== END ==
LOC: SLEEP 10:43
PROVIDERS: ATTEND Internal Medicine
DX: G47.33 Obstructive sleep apnea (adult) (pediatric) (principal); I10 Essential (primary) hypertension; E78.5 Hyperlipidemia, unspecified; E89.0 Postprocedural hypothyroidism; Z86.59 Personal history of other mental and behavioral disorders; Z98.890 Other specified postprocedural states; Z91.048 Other nonmedicinal substance allergy status; Z87.891 Personal history of nicotine dependence
CPT/HCPCS: 99211

== ENCOUNTER → 2022-05-20 | Outpatient (CLI) | payer MEDICARE, OTHER ==
--- NOTE | 2022-05-21 09:17 | MM ---
Reason for Exam: Screening (asymptomatic). Last screening mammogram was performed 12 month(s) ago. Patient History: Menarche at age 11. First Full-Term at age 24. Postmenopausal. Other cancer, age 65. Risk Values: Edita 5 year model risk: 1.9%. NCI Lifetime model risk: 5.9%. Prior Study Comparison: 12/08/2017 Bilateral Screening Mammogram, [facility]. 03/07/2020 Bilateral Screening Mammogram, [facility]. 05/19/2021 Bilateral Screening Mammogram, [facility]. Tissue Density: The breast tissue is heterogeneously dense. This may lower the sensitivity of mammography. Findings: Analyzed By CAD. Stable interval circumscribed 5 mm lesion in the right breast posterior upper aspect. Benign-appearing bilateral axillary lymph nodes are redemonstrated. Benign-appearing vascular calcifications bilaterally is again seen. No obvious new mass or distortion. There is no suspicious new group of microcalcification. Overall Assessment: Incomplete: need additional imaging evaluation, BI-RAD 0 Management: Diagnostic Breast Ultrasound of the right breast. Targeted ultrasound right breast at site of palpable lump marked by the technologist. Electronically signed and approved by: Andrew Love M.D.
== END | disposition home or self-care (01) ==
LOC: RADMAMWWP 10:38
PROVIDERS: ATTEND Family Medicine
DX: Z12.31 Encounter for screening mammogram for malignant neoplasm of breast (principal); Z78.0 Asymptomatic menopausal state
CPT/HCPCS: 77063; 77067

== ENCOUNTER → 2022-05-27 | Outpatient (CLI) | payer MEDICARE, OTHER ==
--- NOTE | 2022-05-27 15:26 | USB ---
Reason for Exam: Clinical finding. Patient History: Menarche at age 11. First Full-Term at age 24. Postmenopausal. Other cancer, age 65. Risk Values: Edita 5 year model risk: 1.9%. NCI Lifetime model risk: 5.9%. Technique: Method: Targeted. Prior Study Comparison: 03/07/2020 Bilateral Screening Mammogram, [facility]. 05/19/2021 Bilateral Screening Mammogram, [facility]. 05/20/2022 Bilateral MG 3D screening mammo w/cad, [facility]. Findings: The area of palpable concern of the right breast, the axilla of the right breast and the retroareolar of the right breast were scanned. There is a 2.1 x 0.7 x 1.7 cm isoechoic structure at the level of palpable abnormality marked by the BB. This is located 3:00 position 6 cm from the nipple. Small lipoma may be present. No suspicious spiculated or lobular masses evident.. Overall Assessment: Probably benign, BI-RAD 3 Management: Diagnostic Breast Ultrasound of the right breast in 6 months. A clinical breast exam by your physician is recommended on an annual basis and results should be correlated with mammographic findings. This exam should not preclude additional follow-up of suspicious palpable abnormalities. Results were given to the patient verbally at the time of exam. Electronically signed and approved by: Hollis Molina D.O. Radiologis
== END | disposition home or self-care (01) ==
LOC: RADUSWWP 14:50
PROVIDERS: ATTEND Family Medicine
DX: R92.8 Other abnormal and inconclusive findings on diagnostic imaging of breast (principal); Z78.0 Asymptomatic menopausal state

== ENCOUNTER → 2022-11-04 | Outpatient (CLI) | payer MEDICARE, OTHER ==
--- NOTE | 2022-11-04 11:39 | USB ---
Reason for Exam: Follow-up at short interval from prior study. Patient History: Menarche at age 11. First Full-Term at age 24. Postmenopausal. Other cancer, age 65. Risk Values: Edita 5 year model risk: 1.9%. NCI Lifetime model risk: 5.9%. Technique: Method: Targeted. Prior Study Comparison: 03/07/2020 Bilateral Screening Mammogram, [facility]. 05/19/2021 Bilateral Screening Mammogram, [facility]. 05/20/2022 Bilateral MG 3D screening mammo w/cad, [facility]. Findings: The upper inner quadrant of the right breast, the axilla of the right breast and the retroareolar of the right breast were scanned. Targeted ultrasound upper inner quadrant right breast 12:00 to 3:00 including the subareolar region and axilla. Redemonstrated at the palpable 2:00 position is a 2.1 x 1.7 x 0.7 cm circumscribed oval isoechoic mass. No internal vascularity. This remains unchanged from 6 months ago and a lipoma is suggested. An additional short interval follow-up can be performed at the time of the patient's annual exam. Overall Assessment: Probably benign, BI-RAD 3 Management: Diagnostic Mammogram of both breasts in 6 months. Diagnostic Breast Ultrasound of the right breast in 6 months. Reassess the 3:00 palpable right breast probable lipoma at the time of the patient's annual exam. A clinical breast exam by your physician is recommended on an annual basis and results should be correlated with mammographic findings. This exam should not preclude additional follow-up of suspicious palpable abnormalities. Results were given to the patient verbally at the time of exam. Electronically signed and approved by: Ariane Maier M.D. Radiologist
== END | disposition home or self-care (01) ==
LOC: RADUSWWP 10:43
PROVIDERS: ATTEND Family Medicine
DX: R92.8 Other abnormal and inconclusive findings on diagnostic imaging of breast (principal); Z78.0 Asymptomatic menopausal state

== ENCOUNTER → 2023-01-17 | Outpatient (CLI) | payer MEDICARE, OTHER ==
--- NOTE | 2023-01-19 23:26 | BD ---
EXAMINATION TYPE: Axial Bone Density DATE OF EXAM: 01/17/2023 CLINICAL HISTORY: 67 years old Female. ICD-10 CODE: M89.9 DISORDER OF BONE, UNSPECIFIED Height: 64.5 Weight: 163 FRAX RISK QUESTIONS: History of Fracture in Adulthood: yes Secondary Osteoporosis: no RISK FACTORS HISTORY OF: History of Wrist Fracture: yes, rt wrist When: age was in 40's Active: yes Diet low in dairy products/other sources of calcium: no Postmenopausal woman: yes, 52 Lost more than 2 inches in height since high school: yes Frequent falls: no Poor Health: no MEDICATIONS: Thyroid Medications: yes Which medication: Levothyroxine How Lon+ years Additional Medications: yes hbp meds, cholesterol, ADHD meds, muscle relaxer EXAM MEASUREMENTS: Bone mineral densitometry was performed using the [employer] System. Bone mineral density as measured about the Lumbar spine is: ----- L1-L4(G/cm2): 1.357 T Score Values are as follows: ----- L1: 2.7 ----- L2: 1.6 ----- L3: 1.7 ----- L4: 0.2 ----- L1-L4: 1.5 Z Score Values are as follows: ----- L1: 4.1 ----- L2: 2.9 ----- L3: 3.0 ----- L4: 1.5 ----- L1-L4: 2.8 Bone mineral density has: Decreased -0.7% since study of: 08/14/2020 Bone mineral density about the R hip (g/cm2): 0.869 Bone mineral density about the L hip (g/cm2): 0.870 T Score values are as follows: -----R Neck: -0.9 -----L Neck: -1.3 -----R Total: -1.1 -----L Total: -1.1 Z Score values are as follows: -----R Neck: 0.6 -----L Neck: 0.1 -----R Total: -1.1 -----L Total: -1.1 Bone mineral density has: Increased 1.2% since study of: 08/14/2020 FRAX%s: The graph provided illustrates a 15.0% chance for a major osteoporotic fx and a 1.9% chance f or the hips probability for fx in 10 years time. IMPRESSION: Osteopenia (T Score between -2.5 and -1). There is slightly increased risk of fracture and the patient may be considered for treatment. Re-Screen 2-5 years. NOTE: T-SCORE=SD OF THE YOUNG ADULT MEAN.
== END | disposition home or self-care (01) ==
LOC: RADBDWWP 07:09
PROVIDERS: ATTEND Family Medicine
DX: M85.89 Other specified disorders of bone density and structure, multiple sites (principal)
CPT/HCPCS: 77080

== ENCOUNTER 2023-04-16 06:32 | Emergency (ER) | payer MEDICARE, OTHER ==
[2023-04-16 06:53] VITALS: RESP 18
--- NOTE | 2023-04-16 07:03 | ED ---
Upper Extremity HPI - General Chief Complaint: Extremity Injury, Upper Stated Complaint: Left Pinky Finger Injury Time Seen by Provider: 04/16/23 06:38 Source: patient, RN notes reviewed Mode of arrival: ambulatory Limitations: no limitations - History of Present Illness Initial Comments: This is a 68-year-old female who presents to the emergency department for an injury to the left pinky finger. Believes that she's broken this finger 3 times in the last month. The first time was as a result of her finger getting caught between dog leashes. The previous 2 times she believes were when she accidentally jammed her finger trying to open a drawer or lift an object. Believes that she most recently injured this 3 days ago, again when trying to open a drawer. She is able to move it, but states that it is painful. States that it also appears bent. Complaint: Injury to:: left, finger - Related Data Home Medications Medication Instructions Recorded Confirmed Enalapril [Vasotec] 20 mg PO BID 03/15/18 03/17/18 Levothyroxine Sodium 125 mcg PO MOTUWETHFR 03/15/18 03/17/18 Lovastatin [Mevacor] 40 mg PO HS 03/15/18 03/17/18 Metoclopramide [Reglan] 10 mg PO TID-W/MEALS 03/15/18 03/17/18 Omeprazole 20 mg PO DAILY 03/15/18 03/17/18 Venlafaxine HCl [Effexor] 75 mg PO TID 03/15/18 03/17/18 amLODIPine BESYLATE [Norvasc] 2.5 mg PO DAILY 03/15/18 03/17/18 Allergies Allergy/AdvReac Type Severity Reaction Status Date / Time adhesive tape Allergy Rash/Hives Verified 10/20/19 16:55 Review of Systems ROS Statement: Those systems with pertinent positive or pertinent negative responses have been documented in the HPI. ROS Other: All systems not noted in ROS Statement are negative. Past Medical History Past Medical History: GERD/Reflux, Hyperlipidemia, Hypertension, Thyroid Disorder History of Any Multi-Drug Resistant Organisms: None Reported Past Surgical History: Cholecystectomy, Hernia Repair, Tonsillectomy Additional Past Surgical History / Comment(s): CYST REMOVED FROM ABD. AREA. CYST REMOVED FROM RT ANKLE. HERNIA X 3. COLONOSCOPY. EGD Past Anesthesia/Blood Transfusion Reactions: No Reported Reaction Past Psychological History: Anxiety, PTSD Smoking Status: Never smoker Past Alcohol Use History: Occasional Past Drug Use History: Marijuana - Past Family History Mother Family Medical History: No Reported History Additional Family Medical History / Comment(s): MOTHER COMMITTED SUICIDE. FATHER HHX UNKNOWN General Exam Limitations: no limitations General appearance: alert, in no apparent distress Head exam: Present: atraumatic, normocephalic, normal inspection Respiratory exam: Present: normal lung sounds bilaterally. Absent: respiratory distress, wheezes, rales, rhonchi, stridor Cardiovascular Exam: Present: regular rate, normal rhythm, normal heart sounds. Absent: systolic murmur, diastolic murmur, rubs, gallop, clicks Extremities exam: Present: other (Left 5th finger has a mild flexion deformity at the DIP joint. Full ROM. No tenderness or swelling.) Neurological exam: Present: alert, oriented X3, CN II-XII intact Psychiatric exam: Present: normal affect, normal mood Course Vital Signs 04/16/23 06:33 Temperature 96.9 F L Pulse Rate 89 Respiratory 18 Rate Blood Pressure 147/85 O2 Sat by Pulse 98 Oximetry Procedures - Orthopedic Splinting/Casting Injury #1 Side: left Upper Extremity Injury Location: finger Upper Extremity Immobilizer: aluminum form splint Medical Decision Making - Medical Decision Making This is a 68 year old female who presents to the emergency department for a left pinky finger injury. Was pt. sent in by a medical professional or institution? @ -No Did you speak to anyone other than the patient for history? @ -No Did you review nursing and triage notes? @ -Yes, and I agree, it is accurate with regards to the patient's symptoms. Were old charts reviewed? @ -No Differential Diagnosis? @ -Differential Musculoskeletal: Muscular strain, contusion, ligament sprain, fracture, arthritis, septic arthritis, bursitis, cellulitis, muscle spasm, nerve compression, DVT, arterial occlusion, herpes zoster, electrolyte abnormality, tumor.... This is not meant to be in all inclusive list EKG interpreted by me (3pts min.)? @ -Not obtained X-rays interpreted by me (1pt min.)? @ -XR of the left fifth finger obtained. My interpretation identifies a flexion deformity at the DIP joint. CT interpreted by me (1pt min.)? @ -Not obtained U/S interpreted by me (1pt. min.)? @ -Not obtained What testing was considered but not performed? (CT, X-rays, U/S, labs)? Why? @ -None What meds were considered but not given? Why? @ -None Did you discuss the management of the patient with other professionals? @ -No Did you reconcile home meds? @ -No Was smoking cessation discussed for >3mins.? @ -No Was critical care preformed (if so, how long)? @ -No Were there social determinants of health that impacted care today? How? (Homelessness, low income, unemployed, alcoholism, drug addiction, transportation, low edu. Level, literacy, decrease access to med. care, fdc, rehab)? @ -No Was there de-escalation of care discussed even if they declined? (Discuss DNR or withdrawal of care, Hospice)? @ -No What co-morbidities impacted this encounter? (DM, HTN, Smoking, COPD, CAD, Cancer, CVA, Hep., AIDS, mental health diagnosis, sleep apnea, morbid obesity)? @ -None Was patient admitted / discharged? @ -Discharged. X-ray of the left fifth finger obtained. This demonstrates a possible mallet finger with a subtle avulsion injury at the extensor insertion at the dorsal distal phalangeal base. Findings reviewed with the patient. She was put in a finger splint and given information for orthopedic follow-up. Ad vised ibuprofen and Tylenol as needed for pain relief. Patient discharged home in stable condition. Undiagnosed new problem with uncertain prognosis? @ -None Drug Therapy requiring intensive monitoring for toxicity (Heparin, Nitro, Insulin, Cardizem)? @ -None Were any procedures done? @ -Finger splint application Diagnosis/symptom? @ -Mallet finger Acute, or Chronic, or Acute on Chronic? @ -Acute Uncomplicated (without systemic symptoms) or Complicated (systemic symptoms)? @ -Uncomplicated Side effects of treatment? @ -None Exacerbation, Progression, or Severe Exacerbation] @ -Not applicable Poses a threat to life or bodily function? @ -May have an impact on her use of the finger. Return precautions reviewed in depth, the patient is instructed to return to the emergency department with any new, worsening, or concerning symptoms. Patient verbalized understanding. This case was discussed in detail with the attending ED physician, Dr. Wong. Presentation, findings, and treatment plan discussed in detail as well. - Radiology Data Radiology results: report reviewed, image reviewed Disposition Clinical Impression: Mallet deformity of left little finger Disposition: HOME SELF-CARE Instructions (If sedation given, give patient instructions): Jammed Finger (ED), Finger Fracture (ED) Additional Instructions: Return to the emergency department with any new, worsening, or concerning symptoms. Alternate with ibuprofen and Tylenol as needed for pain relief. Contact orthopedics as listed below for a follow-up appointment and reevaluation. Is patient prescribed a controlled substance at d/c from ED?: No Referrals: Amy Arboleda MD [Primary Care Provider] - 1-2 days Diana Sánchez DO [Doctor of Osteopathic Medicine] - 1-2 days
--- NOTE | 2023-04-16 07:38 | XR ---
EXAMINATION TYPE: XR finger LT, 3 views coned down fifth finger DATE OF EXAM: 04/16/2023 Comparison: None Clinical History: 68-year-old female with pain after Left fifth finger injury Findings: There is subtle density at the dorsal aspect of the fifth distal phalangeal base. There may be some m ild overlying soft tissue swelling. Slight flexion deformity here. Impression: Possible mallet finger with a subtle avulsion injury at the extensor insertion at the dorsal distal p halangeal base. Clinically correlate.
[2023-04-16 08:10] VITALS: BP 138/76; PULSE 88; TEMP 97.2
== END 2023-04-16 07:56 | disposition home or self-care (01) ==
LOC: EC 06:32
DX: M20.012 Mallet finger of left finger(s) (principal); E78.5 Hyperlipidemia, unspecified; I10 Essential (primary) hypertension; K21.9 Gastro-esophageal reflux disease without esophagitis; F41.9 Anxiety disorder, unspecified; E07.9 Disorder of thyroid, unspecified; Z79.890 Hormone replacement therapy; Z79.899 Other long term (current) drug therapy; Z91.09 Other allergy status, other than to drugs and biological substances
CPT/HCPCS: 99283

== ENCOUNTER → 2023-05-09 | Outpatient (CLI) | payer MEDICARE, OTHER ==
--- NOTE | 2023-05-09 14:49 | MM ---
Reason for Exam: Follow-up at short interval from prior study. Last screening mammogram was performed 12 month(s) ago. Patient History: Menarche at age 11. First Full-Term at age 24. Postmenopausal. Risk Values: Edita 5 year model risk: 1.9%. NCI Lifetime model risk: 5.6%. Prior Study Comparison: 12/08/2017 Bilateral Screening Mammogram, [facility]. 03/07/2020 Bilateral Screening Mammogram, [facility]. 05/19/2021 Bilateral Screening Mammogram, [facility]. 05/20/2022 Bilateral MG 3D screening mammo w/cad, [facility]. Tissue Density: The breast tissue is heterogeneously dense. This may lower the sensitivity of mammography. Findings: Analyzed By CAD. No significant changes when compared with prior studies. Chronic nodularity on the right breast. Unchanged asymmetric density on the left breast. Benign vascular calcifications. Overall Assessment: Incomplete: need additional imaging evaluation, BI-RAD 0 Management: Diagnostic Breast Ultrasound of both breasts. Electronically signed and approved by: Ariane Maier M.D. Radiologist
--- NOTE | 2023-05-09 14:59 | USB ---
Reason for Exam: Follow-up at short interval from prior study. Patient History: Menarche at age 11. First Full-Term at age 24. Postmenopausal. Risk Values: Edita 5 year model risk: 1.9%. NCI Lifetime model risk: 5.6%. Technique: Method: Targeted. Prior Study Comparison: 03/07/2020 Bilateral Screening Mammogram, [facility]. 05/19/2021 Bilateral Screening Mammogram, [facility]. 05/20/2022 Bilateral MG 3D screening mammo w/cad, [facility]. 11/04/2022 Right US breast limited RT, [facility]. Findings: The area of palpable concern of the right breast, the axilla of the right breast and the retroareolar of the right breast were scanned. Targeted ultrasound right breast 3:00 position of the patient's palpable site. Redemonstrated circumscribed oval echogenic mass measuring 1.9 x 1.8 x 0.6 cm 2.1 x 1.7 x 0.7 cm back on 05/27/2022. There is compressibility of the mass. The patient also reports multiple lipomas removed from other parts of her body. No other solid or cystic lesion. Mild duct ectasia behind the nipple. No axillary lymphadenopathy. Overall Assessment: Benign, BI-RAD 2 Management: Screening Mammogram of both breasts in 1 year. The patient's 3:00 right breast palpable site corresponds to a benign lipoma, unchanged for a year. A clinical breast exam by your physician is recommended on an annual basis and results should be correlated with mammographic findings. This exam should not preclude additional follow-up of suspicious palpable abnormalities. Results were given to the patient verbally at the time of exam. Electronically signed and approved by: Ariane Maier M.D. Radiologist
== END | disposition home or self-care (01) ==
LOC: RADMAMWWP 14:10
PROVIDERS: ATTEND Family Medicine
DX: N60.01 Solitary cyst of right breast (principal); R92.0 Mammographic microcalcification found on diagnostic imaging of breast; R92.333 Mammographic heterogeneous density, bilateral breasts; Z78.0 Asymptomatic menopausal state
CPT/HCPCS: 77062; 77066

== ENCOUNTER → 2023-09-07 | Outpatient (CLI) | payer MEDICARE, OTHER ==
--- NOTE | 2023-09-07 13:43 | P.PN ---
Subjective DATE: 09/07/2023 FOLLOW UP VISIT. Patient with obstructive sleep apnea hypopnea syndrome return to sleep center for follow-up visit. Information from previous visit have been reviewed. Patient is using PAP equipment every night for the whole night, getting PAP supplies in time. The patient does not have significant problems with the mask, PAP unit and humidification. [place] sleepiness scale is 1, which is perfect . I checked information from PAP unit. PAP unit pressure 5-15, average 10.1 cm H2O. Usage is 100% for more then 4 hours, average 7.1 hours per night. Leak is 4 l/m, which is in acceptable range. Apnea Hypopnea Index is 1.2, which is normal. MEDICATIONS:1. Levothyroxine 125 mcg once a day 2. Lovastatin 50 mg once a day 3. Duloxetine 60 mg twice a day 4. Abilify 0.5 mg once a day 5. Ambien once a day at bedtime During physical exam: GENERAL: A pleasant patient without any distress. VITAL SIGNS: Please see below. HEENT: PERRLA, EOMI.low position of soft palate, Mallapati 3-4 . NECK: Supple. No JVD. LUNGS: Clear to percussion and to auscultation. Good air exchange. No wheezing or rhonchi. HEART: S1, S2 regular. ABDOMEN: Soft and nontender.[] EXTREMITIES: No clubbing or cyanosis. THEATER SET PRODUCTION DESIGNER: Awake, alert, and oriented x3. No focal deficit. Impressions: 1. Obstructive sleep apnea-hypopnea syndrome. Patient demonstrated great compliance with treatment, benefiting from treatment. 2. Hypertension. 3. Hypothyroidism secondary to treatment with radioactive iodine in the past. 4. History of ADHD. 5. Hyperlipidemia. 6. Status post tonsillectomy. 7. Status post cholecystectomy. 8. Status post fatty tumor removed. 9. Status post ovarian cyst removed. Plan: 1. Continue using PAP equipment every night for the whole night. 2. To change air filter at least 1-2 times per month. 3. PAP unit should stay lower then position of the head. 4. Advised patient to remove all remaining water from humidifier canister daily and make it dry after each usage. Refill canister with fresh distilled water before each usage. 5. Sleep hygiene with regular time in bed for at least 8 hours. 6. Precautions related to driving. No driving if feel any sleepiness. 7. I will maintain prescription for PAP supplies including mask, tube, filters. 8. Follow up visit in 6 months or earlier if patient has any problems. 9. Watching weight. Thank you very much for allowing me to participate in the management of your patient. Edward Gunn MD, PhD, FAASM. Diplomat of [place] [employer], Sleep Medicine Board by [place] [employer] Art Education Professor of [facility] [place] Objective - Vital Signs Vital signs: Vital Signs Temp 97.8 F 09/07/23 13:25 Pulse 84 09/07/23 13:25 Resp 18 09/07/23 13:25 BP 138/85 09/07/23 13:25 Pulse Ox 98 09/07/23 13:25 FiO2
[2023-09-07 13:53] VITALS: BP 138/85; PULSE 84; RESP 18; TEMP 97.8
== END ==
LOC: 3 N SLEEP 13:11
PROVIDERS: ATTEND Internal Medicine
DX: G47.33 Obstructive sleep apnea (adult) (pediatric) (principal); I10 Essential (primary) hypertension; E78.5 Hyperlipidemia, unspecified; E89.0 Postprocedural hypothyroidism; F90.9 Attention-deficit hyperactivity disorder, unspecified type; Z79.890 Hormone replacement therapy; Z79.899 Other long term (current) drug therapy; Z90.49 Acquired absence of other specified parts of digestive tract; Z99.89 Dependence on other enabling machines and devices; Z98.890 Other specified postprocedural states; Z91.048 Other nonmedicinal substance allergy status; Z87.891 Personal history of nicotine dependence
CPT/HCPCS: 99212

== ENCOUNTER → 2024-04-11 | Outpatient (CLI) | payer MEDICARE, OTHER ==
[2024-04-11 13:13] VITALS: BP 136/85; PULSE 78; RESP 16; TEMP 97.3
--- NOTE | 2024-04-11 13:29 | P.PROGSL ---
Subjective DATE: 04/10/2024 FOLLOW UP VISIT. Patient with obstructive sleep apnea hypopnea syndrome return to sleep center for follow-up visit. Information from previous visit have been reviewed. Patient is using PAP equipment every night for the whole night, getting PAP supplies in time. The patient does not have significant problems with the mask, PAP unit and humidification. [place] sleepiness scale is 2, which is perfect. I checked information from PAP unit. PAP unit pressure 5-15, average 9.6 cm H2O. Usage is 96% for more then 4 hours, average 7 hours per night. Leak is 6 l/m, which is in acceptable range. Apnea Hypopnea Index is 1.1, which is normal. MEDICATIONS: Atorvastatin, duloxetine, zolpidem, spironolactone, cyclobenzaprine, levothyroxine, lovastatin, aripiprazole. During physical exam: GENERAL: A pleasant patient without any distress. VITAL SIGNS: Please see below, weight is 176 lbs. HEENT: PERRLA, EOMI.low position of soft palate, Mallapati 34. NECK: Supple. No JVD. LUNGS: Clear to percussion and to auscultation. Good air exchange. No wheezing or rhonchi. HEART: S1, S2 regular. ABDOMEN: Soft and nontender.[] EXTREMITIES: No clubbing or cyanosis. TRAVEL WRITER: Awake, alert, and oriented x3. No focal deficit. Impressions: 1. Obstructive sleep apnea-hypopnea syndrome. Patient demonstrated great compliance with treatment, benefiting from treatment. 2. Hypothyroidism secondary to treatment with radioactive iodine in the past. 3. Hypertension. 4. Status post recent COVID-19. 5. History of ADHD. 6. Hyperlipidemia. 7. Status post tonsillectomy. 8. Status post fatty tumor removed. 9. Status post cholecystectomy. 10. Status post ovarian cyst removed. Plan: 1. Continue using PAP equipment every night for the whole night. 2. Sleep hygiene with regular time in bed for at least 7.5-8 hours 3. PAP unit should stay lower then position of the head. 4. Advised patient to remove all remaining water from humidifier canister daily and make it dry after each usage. Refill canister with fresh distilled water before each usage. 5. Watching weight. 6. Precautions related to driving. No driving if feel any sleepiness. 7. I will maintain prescription for PAP supplies including mask, tube, filters. 8. Follow up visit in 8 months or earlier if patient has any problems. Thank you very much for allowing me to participate in the management of your patient. Edward Gunn MD, PhD, FAASM. Diplomat of [place] [employer], Sleep Medicine Board by [place] [employer] Biomedical Field Service Engineer of [facility] [place] Objective - Vital Signs Vital Signs: Vital Signs Temp 97.3 F L 04/11/24 13:12 Pulse 78 04/11/24 13:12 Resp 16 04/11/24 13:12 BP 136/85 04/11/24 13:12 Pulse Ox 97 04/11/24 13:12 FiO2 Intake & Output 04/10/24 04/11/24 04/11/24 18:59 06:59 18:59 Weight 79.832 kg Home Medications: Home Medications Medication Instructions Recorded Confirmed Type Enalapril [Vasotec] 20 mg PO BID 03/15/18 03/17/18 History Levothyroxine Sodium 125 mcg PO MOTUWETHFR 03/15/18 03/17/18 History Lovastatin [Mevacor] 40 mg PO HS 03/15/18 03/17/18 History Metoclopramide [Reglan] 10 mg PO TID-W/MEALS 03/15/18 03/17/18 History Omeprazole 20 mg PO DAILY 03/15/18 03/17/18 History Venlafaxine HCl [Effexor] 75 mg PO TID 03/15/18 03/17/18 History amLODIPine BESYLATE [Norvasc] 2.5 mg PO DAILY 03/15/18 03/17/18 History
== END ==
LOC: 3 N SLEEP 13:03
PROVIDERS: ATTEND Internal Medicine
DX: G47.33 Obstructive sleep apnea (adult) (pediatric) (principal); I10 Essential (primary) hypertension; E03.9 Hypothyroidism, unspecified; F90.9 Attention-deficit hyperactivity disorder, unspecified type; E78.5 Hyperlipidemia, unspecified; Z98.890 Other specified postprocedural states; Z90.89 Acquired absence of other organs; Z99.89 Dependence on other enabling machines and devices; Z90.49 Acquired absence of other specified parts of digestive tract; Z86.16 Personal history of COVID-19; Z91.048 Other nonmedicinal substance allergy status; Z79.899 Other long term (current) drug therapy; Z79.890 Hormone replacement therapy; Z87.891 Personal history of nicotine dependence
CPT/HCPCS: 99212

== ENCOUNTER → 2024-12-28 | Outpatient (CLI) | payer MEDICARE, OTHER ==
--- NOTE | 2024-12-28 14:00 | P.PROGSL ---
Subjective DATE: 12/28/2024 FOLLOW UP VISIT. Patient with obstructive sleep apnea hypopnea syndrome return to sleep center for follow-up visit. Information from previous visit have been reviewed. Patient is using PAP equipment every night for the whole night, getting PAP supplies in time. The patient does not have significant problems with the mask, PAP unit and humidification. [place] sleepiness scale is 2, which is normal. I checked information from PAP unit. PAP unit pressure 5-15, average 9.5 cm H2O. Usage is 90% for more then 4 hours, average 5.8 hours per night. Leak is 10 l/m, which is in acceptable range. Apnea Hypopnea Index is 0.9, which is normal. MEDICATIONS: Atorvastatin, duloxetine, zolpidem, spironolactone, cyclobenzaprine, levothyroxine, lovastatin, aripiprazole. During physical exam: GENERAL: A pleasant patient without any distress. VITAL SIGNS: BP 122/78, HR 77, RR 12, weight 180 pounds, temperature 98.0, oxygen saturation on room air 96%, BMI 29.9. HEENT: PERRLA, EOMI.low position of soft palate, Mallapati 34. NECK: Supple. No JVD. LUNGS: Clear to percussion and to auscultation. Good air exchange. No wheezing or rhonchi. HEART: S1, S2 regular. ABDOMEN: Soft and nontender.[] EXTREMITIES: No clubbing or cyanosis. SHELL REPRINT OPERATOR: Awake, alert, and oriented x3. No focal deficit. Impressions: 1. Obstructive sleep apnea-hypopnea syndrome. Patient demonstrated great compliance with treatment, benefiting from treatment. 2. Hypertension. 3. Hypothyroidism secondary to treatment with radioactive iodine in the past. 4. History of ADHD. 5. Status post COVID-19. 6. Hyperlipidemia. 7. Status post cholecystectomy. 8. Status post ovarian cyst removed. 9. Status post tonsillectomy. 10. Status post fatty tumor removed. Plan: 1. Continue using PAP equipment every night for the whole night. 2. Sleep hygiene with regular time in bed for at least 7.5-8 hours 3. PAP unit should stay lower then position of the head. 4. Advised patient to remove all remaining water from humidifier canister daily and make it dry after each usage. Refill canister with fresh distilled water before each usage. 5. Watching weight. 6. Precautions related to driving. No driving if feel any sleepiness. 7. I will maintain prescription for PAP supplies including mask, tube, filters. 8. Follow up visit in 12 months or earlier if patient has any problems. Thank you very much for allowing me to participate in the management of your patient. Edward Gunn MD, PhD, FAASM. Diplomat of [place] [employer], Sleep Medicine Board by [place] [employer] It Software Developer of [facility] [place] Objective Home Medications: Home Medications Medication Instructions Recorded Confirmed Type Enalapril [Vasotec] 20 mg PO BID 03/15/18 03/17/18 History Levothyroxine Sodium 125 mcg PO MOTUWETHFR 03/15/18 03/17/18 History Lovastatin [Mevacor] 40 mg PO HS 03/15/18 03/17/18 History Metoclopramide [Reglan] 10 mg PO TID-W/MEALS 03/15/18 03/17/18 History Omeprazole 20 mg PO DAILY 03/15/18 03/17/18 History Venlafaxine HCl [Effexor] 75 mg PO TID 03/15/18 03/17/18 History amLODIPine BESYLATE [Norvasc] 2.5 mg PO DAILY 03/15/18 03/17/18 History
== END ==
LOC: 3 N SLEEP 13:40
PROVIDERS: ATTEND Internal Medicine
CPT/HCPCS: 99212